=== PATIENT | male | born 1980 | race African-American/Black ===

== ENCOUNTER 2020-11-13 17:35 | Observation (INO) ==
[2020-11-13 18:22] LABS: Basophils % 0.5 % (0.0-0.8); Eosinophils # 0.1 10*3/uL (0.0-0.87); Eosinophils % 0.9 % (0.00-10.9); Hematocrit 41.7 VOL% (42.0-52.0); Hemoglobin 14.7 GM/DL (14.0-18.0); Immature Granulocytes % 0.1 %; Immature Granulocytes Absolute 0.01 #; Lymphocytes # 3.1 10*3/uL (1.4-4.0); Lymphocytes % 38.4 % (21.2-54.2); Mean Corpuscular HGB Conc 35.3 GM/DL (32-36); Mean Corpuscular Volume 81.3 FL (87-102); Mean Platelet Volume 9.1 FL (9.6-12.0); Neutrophils % 50.1 % (38.7-73.9); Platelet Count 303 T/CUMM (130-400); Red Blood Count 5.13 MC/CUMM (3.8-5.5); Red Cell Distribution Width 14.6 % (9.3-17.3); White Blood Count 8.1 T/CUMM (4-12)
[2020-11-13] MEDS ORDERED: DILTIAZEM 25 MG/5 ML VIAL IV ONE (18:28)
[2020-11-13] MEDS ORDERED: DILTIAZEM 50 MG/10 ML VIAL IV STA (18:30)
[2020-11-13 18:39] LABS: Albumin 3.7 G/DL (3.4-5.0); Bilirubin,Total 0.6 MG/DL (0.2-1.0); Calcium 9.5 MG/DL (8.5-10.1); Osmolality,Calculated 277.3 MOS/KG (273-304); Potassium 3.5 MMOL/L (3.5-5.1); Total Protein 7.2 G/DL (6.4-8.2)
[2020-11-13] MEDS ORDERED: SODIUM CHLORIDE 0.9% 1,000 ML IV STA (19:11)
[2020-11-13] MEDS ORDERED: DILTIAZEM INJ 100 MG in SODIUM CHLORIDE 0.9% 100 ML IV SCH (20:30)
[2020-11-13] MEDS ORDERED: ENOXAPARIN 100 MG/ML SYRINGE SUBCUT STA (20:37)
[2020-11-13] MEDS ORDERED: ONDANSETRON 4 MG/2 ML VIAL IV PRN (22:45)
[2020-11-13] MEDS ORDERED: ACETAMINOPHEN 325 MG TABLET PO PRN (22:45)
[2020-11-13] MEDS ORDERED: IBUPROFEN 600 MG TABLET PO PRN (22:45)
[2020-11-13] MEDS: DOCUSATE SODIUM 100 MG CAPSULE PO SCH (22:45)
[2020-11-14] MEDS ORDERED: POTASSIUM CHLORIDE 20 MEQ TABLET PO ONE (08:39)
[2020-11-14] MEDS ORDERED: APIXABAN 5 MG TABLET PO SCH (09:00)
[2020-11-14] MEDS ORDERED: PANTOPRAZOLE 40 MG TABLET PO SCH (09:00)
[2020-11-14] MEDS ORDERED: SOTALOL 80 MG TABLET PO SCH (09:00)
[2020-11-14] MEDS: DOCUSATE SODIUM 100 MG CAPSULE PO SCH (09:56)
[2020-11-14 11:45] VITALS: BP 133/99
[2020-11-14] MEDS ORDERED: DILTIAZEM CD 120 MG CAPSULE PO SCH (21:00)
[2020-11-14] MEDS ORDERED: FLECAINIDE 50 MG TABLET PO SCH (21:00)
== END 2020-11-14 15:18 | disposition home or self-care (01) ==
LOC: N.ED 17:35 → N.EDINP 17:35 → N.TELES 22:39
PROVIDERS: ADMIT Family Medicine; ATTEND Family Medicine

== ENCOUNTER 2022-04-21 23:58 | Observation (INO) ==
[2022-04-22] MEDS ORDERED: ASPIRIN 325 MG TABLET PO STA (00:13)
[2022-04-22] MEDS ORDERED: ENOXAPARIN 100 MG/ML SYRINGE SUBCUT STA (00:13)
[2022-04-22] MEDS ORDERED: ONDANSETRON 4 MG/2 ML VIAL IV STA (00:13)
[2022-04-22] MEDS ORDERED: DILTIAZEM 50 MG/10 ML VIAL IV STA (00:15)
[2022-04-22] MEDS ORDERED: DILTIAZEM 25 MG/5 ML VIAL IV ONE (00:20)
[2022-04-22] MEDS ORDERED: ONDANSETRON 4 MG/2 ML VIAL ONE (00:20)
[2022-04-22 00:26] LABS: Basophils # 0.1 10*3/uL (0.0-0.2); Basophils % 0.6 % (0.0-0.8); Eosinophils # 0.1 10*3/uL (0.0-0.87); Eosinophils % 0.8 % (0.00-10.9); Hemoglobin 15.6 GM/DL (14.0-18.0); Immature Granulocytes % 0.2 %; Immature Granulocytes Absolute 0.02 #; Lymphocytes % 48.4 % (21.2-54.2); Mean Corpuscular HGB Conc 34.7 GM/DL (32-36); Mean Corpuscular Volume 81.2 FL (87-102); Monocytes # 0.7 10*3/uL (0.11-0.8); Monocytes % 8.1 % (1.7-12.7); Neutrophils % 41.9 % (38.7-73.9); Platelet Count 265 T/CUMM (130-400); Red Blood Count 5.54 MC/CUMM (3.8-5.5); Red Cell Distribution Width 13.6 % (9.3-17.3); White Blood Count 8.3 T/CUMM (4-12)
[2022-04-22] MEDS ORDERED: DILTIAZEM INJ 100 MG in SODIUM CHLORIDE 0.9% 100 ML IV SCH (00:30)
[2022-04-22 00:44] LABS: PT Patient Result 10.8 SECS (10.1-12.1); Partial Thromboplastin Time 32.3 SECS (23.7-32.9)
[2022-04-22 00:54] LABS: Albumin 4.1 G/DL (3.4-5.0); Bilirubin,Total 0.4 MG/DL (0.20-1.00); Calcium 9.5 MG/DL (8.5-10.1); Osmolality,Calculated 280.3 MOS/KG (273-304); Potassium 3.3 MMOL/L (3.5-5.1); Total Protein 7.7 G/DL (6.4-8.2)
[2022-04-22] MEDS ORDERED: POTASSIUM CHLORIDE 20 MEQ TABLET PO STA (01:04)
[2022-04-22 01:57] VITALS: BP 122/79
[2022-04-22] MEDS ORDERED: ONDANSETRON 4 MG/2 ML VIAL IV PRN (02:04)
[2022-04-22] MEDS ORDERED: ACETAMINOPHEN 325 MG TABLET PO PRN (02:04)
[2022-04-22] MEDS ORDERED: MORPHINE 2 MG/1 ML SYRINGE IV PRN (02:04)
[2022-04-22] MEDS ORDERED: DOCUSATE SODIUM 100 MG CAPSULE PO SCH (09:00)
[2022-04-22] MEDS ORDERED: PANTOPRAZOLE 40 MG TABLET PO SCH (09:00)
[2022-04-22] MEDS ORDERED: ENOXAPARIN 40 MG/0.4 ML SYRINGE SUBCUT SCH (09:00)
[2022-04-22 09:11] LABS: Barbiturates Screen,Urine Negative (Negative); Benzodiazepines Screen,Urine Negative (Negative); Cannabinoid Screen,Urine Negative (Negative); Opiate Screen,Urine Negative (Negative); Phencyclidine Screen,Urine Negative (Negative)
[2022-04-22] MEDS ORDERED: ASCORBIC ACID 500 MG TABLET PO SCH (09:34)
[2022-04-22] MEDS ORDERED: DILTIAZEM CD 120 MG CAPSULE PO SCH (21:00)
[2022-04-22] MEDS ORDERED: PROPAFENONE 150 MG TABLET PO SCH (22:00)
[2022-04-23] MEDS ORDERED: POTASSIUM CHLORIDE 20 MEQ TABLET PO SCH (09:00)
[2022-04-23] MEDS ORDERED: ASPIRIN EC 81 MG TABLET PO SCH (09:00)
== END 2022-04-22 16:30 | disposition home or self-care (01) ==
LOC: N.EDINP 23:58 → N.ED 23:58 → N.ICU 04-22 02:03
PROVIDERS: ADMIT Family Medicine; ATTEND Family Medicine